=== PATIENT | male | born 1945 | race Two or more races ===

== ENCOUNTER 2018-11-08 11:28 | Inpatient (IN) | payer MEDICARE ==
[~2018-11-08] VITALS: Ht 182.9 cm; Wt 106.6 kg
[2018-11-08 11:56] LABS: BASOPHILS % (AUTO) 0.3 % (0.0-2.0); EOSINOPHILS % (AUTO) 0.7 % (0.0-6.0); HEMATOCRIT 41 % (39-51); HEMOGLOBIN 13.7 g/dL (13.5-17.5); LYMPHOCYTES # (AUTO) 1.2 /CMM (0.8-4.8); LYMPHOCYTES % (AUTO) 12.2 % (20.0-44.0); MEAN CORPUSCULAR HGB CONC 34 g/dl (31.0-36.0); MEAN CORPUSCULAR VOLUME 102 fL (80-96); MONOCYTES # (AUTO) 1.2 /CMM (0.1-1.30); MONOCYTES % (AUTO) 12.1 % (2.0-12.0); NEUTROPHILS # (AUTO) 7.2 /CMM (1.8-8.9); NEUTROPHILS % (AUTO) 74.7 % (43.0-81.0); PLATELET COUNT (AUTO) 144 /CMM (150-450); RED BLOOD CELL COUNT(AUTO) 4.01 MIL/uL (4.5-6.0); WHITE BLOOD COUNT (AUTO) 9.6 K/uL (4.3-11.0)
--- NOTE | 2018-11-08 11:59 | NUR ---
PT REC'D TO ER C/O CONGESTION FOR 3 DAYS NO FEVER IV STARTED 20G RT AC LABS AND UA SENT TO [facility] EVALUATION BY ER PROVIDER.
--- NOTE | 2018-11-08 12:00 | NUR ---
CHEST XRAY DONE
--- NOTE | 2018-11-08 12:03 | NUR ---
PT IS VISITING FROM [facility] STATED HAD BEEN DX WITH CPOD IN MAR 2018 . O2 SATS 92 2L N/C
[2018-11-08] MEDS ORDERED: ASPI-1169 PO (12:06)
[2018-11-08] MEDS ORDERED: ALBU18HF2 IH (12:06)
[2018-11-08] MEDS ORDERED: ATOR40TA PO (12:06)
[2018-11-08] MEDS ORDERED: UMEC1BLS IH (12:06)
[2018-11-08] MEDS ORDERED: CARV25TA PO (12:06)
[2018-11-08] MEDS ORDERED: APIX2.5T PO (12:06)
[2018-11-08 12:08] LABS: CALCIUM, SERUM 8.4 mg/dL (8.5-10.1); CARBON DIOXIDE 30 mmol/L (21-32); CHLORIDE 103 mmol/L (98-107); CREATININE 0.8 mg/dL (0.6-1.3); GLUCOSE 162 mg/dL (74-106); POTASSIUM 4.2 mmol/L (3.5-5.1); SODIUM SERUM 141 mmol/L (136-145); UREA NITROGEN, BLOOD 16 mg/dL (7-18)
[2018-11-08 12:21] LABS: ALANINE AMINOTRANSFERASE 24 U/L (12-78); ALBUMIN 3.6 g/dL (3.4-5.0); ALKALINE PHOSPHATASE 123 U/L (46-116); ASPARTATE AMINOTRANSFERASE 22 U/L (15-37); B-TYPE NATRIURETIC PEPTIDE 1884 PG/ML (0-125); BILIRUBIN,DIRECT 0.4 mg/dL (0.0-0.2); BILIRUBIN,TOTAL 1.3 mg/dL (0.2-1.0); TOTAL PROTEIN, SERUM 7.4 g/dL (6.4-8.2)
--- NOTE | 2018-11-08 12:24 | NUR ---
RT AT BEDSIDE GIVING TX
[2018-11-08] MEDS ORDERED: ALBUTEROL FS 2.5 MG/3 ML VIAL.NEB NEB ONE (12:30)
[2018-11-08] MEDS ORDERED: IPRATROPIUM NEB FS 0.5 MG/2.5 ML AMPUL.NEB NEB ONE (12:30)
[2018-11-08] MEDS ORDERED: ALBUTEROL FS 2.5 MG/3 ML VIAL.NEB ONE (12:33)
[2018-11-08] MEDS ORDERED: IPRATROPIUM NEB FS 0.5 MG/2.5 ML AMPUL.NEB ONE (12:33)
--- NOTE | 2018-11-08 12:56 | NUR ---
PT HAD BREATHING TX SSTILL HAS RALES WHEEZING KYARA PENDING ADMIT
--- NOTE | 2018-11-08 13:19 | NUR ---
CALLED [facility]
--- NOTE | 2018-11-08 13:25 | NUR ---
CALLED NURSING SUP, ASKED FOR TELE BED
[2018-11-08] MEDS ORDERED: FUROSEMIDE 20 MG/2 ML VIAL ONE (13:58)
[2018-11-08] MEDS ORDERED: FUROSEMIDE 20 MG/2 ML VIAL IV ONE (14:00)
[2018-11-08] MEDS ORDERED: CEFTRIAXONE 1GM BAG (ER ONLY) 1 GM/50 ML PIGGYBACK IV ONE (14:00)
[2018-11-08] MEDS ORDERED: methylPREDNISolone SOD SUCC 125 MG/2ML VIAL IV ONE (14:00)
--- NOTE | 2018-11-08 14:01 | NUR ---
room 308-2
--- NOTE | 2018-11-08 14:02 | NUR ---
MEDS GIVEN PER MD ORDER
[2018-11-08] MEDS ORDERED: methylPREDNISolone SOD SUCC 125 MG/2ML VIAL ONE (14:03)
--- NOTE | 2018-11-08 15:05 | NUR ---
RN NOTES RECEIVED REPORT FROM AMAYA.
--- NOTE | 2018-11-08 15:08 | NUR ---
CALLED REPORT TO Leonor on floor pt stable for transfer
--- NOTE | 2018-11-08 15:20 | NUR ---
FINAL OPERATIONS TECHNICIAN ADMITTING NOTES ADMITTED A 73 Y/O MALE TO UNIT VIA GURNEY AT 1520 ACCOMPANIED BY E.R NURSE AND FAMILY. A/O X 4. ABLE TO MAKE NEEDS KNOWN. NO C/O PAIN OR DISCOMFORT AT THIS TIME. PATIENT ORIENTED TO UNIT, ROOM AND STAFF. ON OXYGEN 2LPM VIA NC. V/S TAKEN AND RECORDED. PHYSICAL ASSESSMENT DONE. PHOTOS OF SKIN ISSUES TAKEN AND FILED ON CHART. IV ACCESS ON RIGHT AC #20 CURRENTLY ON SL. PATENT AND INTACT. SAFETY MEASURES IN PLACE, BED IN LOW LOCKED POSITION WITH SIDE RAILS UPX2. CALL LIGHT WITHIN EASY REACH. WILL CONTINUE TO MONITOR.
[2018-11-08 16:01] VITALS: BP 135/67
[2018-11-08] MEDS ORDERED: Z GUARD REMEDY 2 OZ OINT TP PRN (18:30)
[2018-11-08] MEDS ORDERED: ZOLPIDEM TARTRATE 5 MG TABLET PO PRN (18:30)
[2018-11-08] MEDS ORDERED: MAGNESIUM HYDROXIDE 30 ML UDC PO PRN (18:30)
[2018-11-08] MEDS ORDERED: LORAZEPAM INJ 2 MG/ML VIAL IV PRN (18:30)
[2018-11-08] MEDS ORDERED: IPRATROPIUM NEB FS 0.5 MG/2.5 ML AMPUL.NEB NEB PRN (18:30)
[2018-11-08] MEDS ORDERED: MAG HYDROX/AL HYDROX/SIMETH 30 ML UDC PO PRN (18:30)
[2018-11-08] MEDS ORDERED: ACETAMINOPHEN 325 MG TABLET PO PRN (18:30)
[2018-11-08] MEDS ORDERED: ALBUTEROL FS 2.5 MG/3 ML VIAL.NEB NEB PRN (18:30)
[2018-11-08] MEDS ORDERED: HYDROCODONE/APAP 5/325MG 1 EACH TABLET PO PRN (18:30)
[2018-11-08] MEDS ORDERED: ONDANSETRON HCL/PF 4 MG/2 ML VIAL IVP PRN (18:30)
--- NOTE | 2018-11-08 18:53 | NUR ---
LEARNING AND DEVELOPMENT MANAGER CLOSING NOTES PATIENT IN BED RESTING COMFORTABLY IN MODERATE HIGH BACK REST. A/O X4. SON AT BEDSIDE. ON OXYGEN 2LPM VIA NC. NO SOB NOTED. NO C/O PAIN OR ANY DISCOMFORT AT THIS TIME. IV ACCESS ON RAC #20, CURRENTLY ON SL. PATENT AND INTACT. ON TELE MONITORING WITH CURRENT READING OF AFIB WITH HR OF 80'S. NO CARDIAC DISTRESS VOICED AT THIS TIME. SAFETY MEASURES IN PLACE, BED IN LOW LOCKED POSITION WITH SIDE RAILS UP X2. CALL LIGHT WITHIN EASY REACH. WILL ENDORSE TO STRATEGIC INTELLIGENCE OFFICER NURSE FOR SOURAV.
--- NOTE | 2018-11-08 19:30 | NUR ---
RECEIVED PATIENT UP IN BED. AO X 3, ABLE TO MAKE NEEDS KNOWN. NO ACUTE DISTRESS NOTED. DENIES ANY PAIN AT THIS TIME. TELE READING AFIB HR 82. IV SITE PATENT, INTACT; FLUSHED. SAFETY REMINDERS GIVEN. ON LOW BED WITH BILATERAL UPPER SIDE RAILS UP. CALL DOMINGUEZ WITHIN EASY REACH. WILL CONTINUE TO MONITOR. .
[2018-11-08 20:00] VITALS: BP 107/59
[2018-11-08] MEDS: IPRATROPIUM NEB FS 0.5 MG/2.5 ML AMPUL.NEB NEB SCH (20:15)
[2018-11-08] MEDS: ALBUTEROL FS 2.5 MG/3 ML VIAL.NEB NEB SCH (20:15)
--- NOTE | 2018-11-08 23:50 | NUR ---
RELAYED TO DR. LUNA THAT PATIENT'S ELIQUIS, LIPITOR, AND CARVEDILOL WERE CONTINUED IN MED [facility] BUT TO BE STARTED ON 11/09/18. PER PATIENT, HE NEEDS TO TAKE ELIQUIS, LIPITOR, AND CARVEDILOL TONIGHT. DR. LUNA ORDERED X 1 OF ELIQUIS, LIPITOR, AND CARVEDILOL; NOTED AND CARRIED OUT.
[2018-11-09] VITALS: BP 124/67
[2018-11-09] MEDS ORDERED: CARVEDILOL 12.5 MG TABLET PO ONE
[2018-11-09] MEDS ORDERED: APIXABAN 2.5 MG TABLET PO ONE
[2018-11-09] MEDS ORDERED: ATORVASTATIN 40 MG TABLET PO ONE
[2018-11-09] MEDS: IPRATROPIUM NEB FS 0.5 MG/2.5 ML AMPUL.NEB NEB SCH ×4 (02:10→20:09)
[2018-11-09] MEDS: ALBUTEROL FS 2.5 MG/3 ML VIAL.NEB NEB SCH ×4 (02:11→20:09)
[2018-11-09 05:00] VITALS: BP 108/49
[2018-11-09 06:00] VITALS: BP 108/49
--- NOTE | 2018-11-09 06:00 | NUR ---
PATIENT ASLEEP, EASILY AROUSABLE. RESPIRATIONS EVEN. NO SIGNS OF PAIN NOTED. DUE MEDS GIVEN WITH NO ASE NOTED. NEEDS ATTENDED. SAFETY PRECAUTIONS AND COMFORT MEASURES IN PLACE. WILL GIVE REPORT TO DAY SHIFT FOR CONTINUITY OF CARE.
[2018-11-09 06:36] LABS: ALBUMIN 3.1 g/dL (3.4-5.0); BILIRUBIN,TOTAL 0.9 mg/dL (0.2-1.0); CALCIUM, SERUM 7.8 mg/dL (8.5-10.1); POTASSIUM 4.1 mmol/L (3.5-5.1); TOTAL PROTEIN, SERUM 6.5 g/dL (6.4-8.2)
[2018-11-09 06:45] LABS: THYROID STIMULATING HORMONE 0.528 uIU/mL (0.358-3.74)
[2018-11-09 07:08] LABS: BASOPHILS % (AUTO) 0.1 % (0.0-2.0); HEMATOCRIT 39 % (39-51); HEMOGLOBIN 12.7 g/dL (13.5-17.5); LYMPHOCYTES # (AUTO) 0.9 /CMM (0.8-4.8); LYMPHOCYTES % (AUTO) 9.7 % (20.0-44.0); MEAN CORPUSCULAR HGB CONC 33 g/dl (31.0-36.0); MEAN CORPUSCULAR VOLUME 102 fL (80-96); MONOCYTES # (AUTO) 0.5 /CMM (0.1-1.30); MONOCYTES % (AUTO) 5.4 % (2.0-12.0); NEUTROPHILS # (AUTO) 7.6 /CMM (1.8-8.9); NEUTROPHILS % (AUTO) 84.8 % (43.0-81.0); PLATELET COUNT (AUTO) 129 /CMM (150-450); RED BLOOD CELL COUNT(AUTO) 3.78 MIL/uL (4.5-6.0)
--- NOTE | 2018-11-09 07:44 | NUR ---
GAS SYSTEM OPERATOR NOTES PATIENT RECEIVED RESTING INSIDE ROOM. SLEEPING, EASILY AROUSABLE THROUGH VERBAL AND TACTILE STIMULI. NO ACUTE DISTRESS. DENIES ANY PAIN OR DISCOMFORT. NO CHANGES IN LOC NOTED. CONTINUE ON TELEMETRY, SYNOPTIC METEOROLOGIST IN PLACE, SR 72. SAFETY PRECAUTIONS IN PLACE. WILL CONTINUE TO MONITOR. BED LOCKED AND IN LOW POSITION. BILATERAL UPPER SIDE RAILS UP AND LOCKED. CALL LIGHT WITHIN EASY REACH
[2018-11-09 08:00] VITALS: BP 115/60
[2018-11-09] MEDS: APIXABAN 2.5 MG TABLET PO SCH ×2 (08:58→17:51)
[2018-11-09] MEDS: THIAMINE HCL 100 MG TABLET PO SCH (08:59)
[2018-11-09] MEDS: FLUTICASONE/VILANTEROL 1 EACH BLST.W.DEV IH SCH (08:59)
[2018-11-09] MEDS: FOLIC ACID 1 MG TABLET PO SCH (08:59)
[2018-11-09] MEDS: CARVEDILOL 12.5 MG TABLET PO SCH ×2 (08:59→17:50)
[2018-11-09] MEDS: ASPIRIN 81 MG TAB.CHEW PO SCH (08:59)
[2018-11-09] MEDS: methylPREDNISolone SOD SUCC 125 MG/2ML VIAL IV SCH ×3 (09:00→17:50)
[2018-11-09 09:23] LABS: ABG BASE EXCESS -0.3 mmol/L; ABG OXYGEN SATURATION 97.1 % (92.0-98.5); ABG PCO2 45.5 mmHg (35.0-45.0); ABG PH 7.365 (7.350-7.450); ABG PO2 97.8 mmHg (75.0-100.0); AaDO2 33.7 mmHg; COHb 1.3 % (0.5-1.5); MetHb 0.3 % (0.0-1.5); O2Hb 95.5 % (94.0-97.0); VENT MODE, BG NC 2L
[2018-11-09] MEDS: CEFTRIAXONE 1 G in IV D5W 50 ML IV SCH (13:23)
[2018-11-09 16:00] VITALS: BP 134/73
[2018-11-09] MEDS: ATORVASTATIN 40 MG TABLET PO SCH (17:50)
--- NOTE | 2018-11-09 19:02 | NUR ---
MS RN NOTES PATIENT RESTING INSIDE ROOM. AWAKE, ALERT AND ORIENTED X 4, VERBALLY RESPONSIOVE AND RESPONDS TO VERBAL AND TACTILE STIMULI. BREATHING EVEN AND UNLABORED. NO ACUTE DISTRESS. DENIES ANY PAIN OR DISCOMFORT AT THIS TIME. NO CHANGES IN LOC NOTED AT THIS TIME. WILL ENDORSE TO INCOMING SHIFT FOR SOURAV. PATIENT KEPT CLEAN, DRY AND COMFORTABLE. PROVIDED WITH CALM, SAFE, HAZARD-FREE ENVIRONMENT. CALL LIGHT WITHIN EASY REACH
--- NOTE | 2018-11-09 20:03 | NUR ---
MS RN NOTES RECEIVED PATIENT AWAKE IN BED WITH NO DISTRESS NOTED. CALL LIGHT WITHIN REACH. NO C/O PAIN OR DISCOMFORT. PERIPHERAL LINE INTACT AND PATENT. ENCOURAGED USE OF CALL LIGHT FOR ASSISTANCE AND VERBALIZED GOOD UNDERSTANDING. BED IN LOW LOCK SETTING. ROOM FREE OF CLUTTER AND BELONGINGS KEPT NEAR BEDSIDE. BED ALARM ON AND FUNCTIONING PROPERLY. WILL CONTINUE TO MONITOR.
[2018-11-09 20:24] VITALS: BP 133/79
[2018-11-10] MEDS: IPRATROPIUM NEB FS 0.5 MG/2.5 ML AMPUL.NEB NEB SCH ×4 (01:28→19:41)
[2018-11-10] MEDS: ALBUTEROL FS 2.5 MG/3 ML VIAL.NEB NEB SCH ×4 (01:28→19:41)
--- NOTE | 2018-11-10 06:25 | NUR ---
MS RN NOTES PATIENT ASLEEP IN BED WITH NO DISTRESS NOTED. CALL LIGHT WITHIN REACH. ALL DUE MEDS GIVEN ORDERED WITH NO ASE. NO C/O PAIN OR DISCOMFORT. PERIPHERAL LINE INTACT AND PATENT. BED IN LOW LOCK SETTING. BED ALARM ON AND FUNCTIONING PROPERLY. ROOM FREE OF CLUTTER AND BELONGINGS KEPT NEAR BEDSIDE. WILL ENDORSE TO ONCOMING SHIFT.
[2018-11-10 06:32] LABS: HEMATOCRIT 40 % (39-51); HEMOGLOBIN 13.2 g/dL (13.5-17.5); LYMPHOCYTES # (AUTO) 0.9 /CMM (0.8-4.8); LYMPHOCYTES % (AUTO) 7.2 % (20.0-44.0); MEAN CORPUSCULAR HGB CONC 33 g/dl (31.0-36.0); MEAN CORPUSCULAR VOLUME 101 fL (80-96); MONOCYTES # (AUTO) 0.7 /CMM (0.1-1.30); MONOCYTES % (AUTO) 5.7 % (2.0-12.0); NEUTROPHILS # (AUTO) 10.6 /CMM (1.8-8.9); NEUTROPHILS % (AUTO) 87.1 % (43.0-81.0); PLATELET COUNT (AUTO) 133 /CMM (150-450); RED BLOOD CELL COUNT(AUTO) 3.95 MIL/uL (4.5-6.0); WHITE BLOOD COUNT (AUTO) 12.2 K/uL (4.3-11.0)
[2018-11-10 06:37] LABS: CALCIUM, SERUM 8.3 mg/dL (8.5-10.1); POTASSIUM 4.1 mmol/L (3.5-5.1)
[2018-11-10 08:00] VITALS: BP 121/71
--- NOTE | 2018-11-10 08:00 | NUR ---
m/s bread and pastry baker: initial assessment received pt in bed awake, a/ox4. pt still wheezing to keri lobes upon auscultation. no c/o sob or any discomfort. instructed to call for assistance. will continue to monitor.
[2018-11-10 09:06] VITALS: BP 121/91
[2018-11-10] MEDS: FOLIC ACID 1 MG TABLET PO SCH (09:10)
[2018-11-10] MEDS: FLUTICASONE/VILANTEROL 1 EACH BLST.W.DEV IH SCH (09:11)
[2018-11-10] MEDS: ASPIRIN 81 MG TAB.CHEW PO SCH (09:11)
[2018-11-10] MEDS: CARVEDILOL 12.5 MG TABLET PO SCH ×2 (09:11→17:52)
[2018-11-10] MEDS: THIAMINE HCL 100 MG TABLET PO SCH (09:11)
[2018-11-10] MEDS: APIXABAN 2.5 MG TABLET PO SCH (09:15)
[2018-11-10] MEDS: methylPREDNISolone SOD SUCC 125 MG/2ML VIAL IV SCH ×3 (09:19→18:58)
--- NOTE | 2018-11-10 09:30 | NUR ---
m/s promotional representative: pulmo consult seen and examined by dr. saldivar at this time.
--- NOTE | 2018-11-10 11:20 | NUR ---
m/s plastics heat welder: cardio consult seen and examined dr. youssef at this time. son at bedside. will continue to monitor.
--- NOTE | 2018-11-10 12:30 | NUR ---
m/s foundry manager: notes up and about in unit with son near by. will continue to monitor.
--- NOTE | 2018-11-10 12:40 | NUR ---
m/s knot tier: notes ekg resulted and hand result to dr. larios (crm marketing analyst) with no new order.
[2018-11-10] MEDS: CEFTRIAXONE 1 G in IV D5W 50 ML IV SCH (13:33)
--- NOTE | 2018-11-10 14:00 | NUR ---
m/s lead welder: notes resting comfortable in bed. no distress noted.
[2018-11-10 16:00] VITALS: BP 131/68
--- NOTE | 2018-11-10 16:00 | NUR ---
m/s bartender server: notes resting comfortable in his room. no distress noted. instructed to call for assistance. will monitor.
[2018-11-10] MEDS ORDERED: APIXABAN 2.5 MG TABLET PO SCH (17:00)
[2018-11-10] MEDS: ATORVASTATIN 40 MG TABLET PO SCH (17:52)
[2018-11-10] MEDS: APIXABAN 5 MG TABLET PO SCH (17:55)
--- NOTE | 2018-11-10 19:00 | NUR ---
RN medsurg notes Received Pt from morning nurse. Pt is alert and oriented x4. Pt is resting in bed comfortably. Respiration is normal in 2 L NC. No SOB. No nausea or vomiting. Pt denies any pain or discomfort at this time. IV sites at RAC # 20 is clean, intact, patent and SL. Safety precautions is maintained. Bed at low position, brakes locked, side rails X2 and call light is within reach. Will continue to monitor.
--- NOTE | 2018-11-10 19:00 | NUR ---
m/s service unit operator: notes bedside report given to davin (rn) for continuity of care.
[2018-11-10] MEDS ORDERED: FEE PK DOSING 1 MIN EA MC ONE (19:33)
[2018-11-10 20:00] VITALS: BP 127/73
[2018-11-10] MEDS: VANCOMYCIN 1.5 GM in IV D5W 500 ML IV SCH (20:38)
[2018-11-10 20:41] VITALS: BP 127/73
--- NOTE | 2018-11-11 | NUR ---
RN medsurg notes Pt is sleeping in bed comfortably. Awaken easily. Respiration is normal in 2 L NC. No SOB. No S/S of distress noted.
[2018-11-11] MEDS: ALBUTEROL FS 2.5 MG/3 ML VIAL.NEB NEB SCH ×4 (00:58→20:20)
[2018-11-11] MEDS: IPRATROPIUM NEB FS 0.5 MG/2.5 ML AMPUL.NEB NEB SCH ×4 (00:58→20:20)
--- NOTE | 2018-11-11 06:30 | NUR ---
RN medsurg closing notes Pt is alert and oriented X4. Pt is sitting in bed comfortably. Respiration is normal in 2 L NC. No SOB. Pt denies any pain or discomfort at this time. IV sites RAC is clean, intact, patent and SL. Routine meds were given as ordered. All needs met and attended. Kept Pt warm, dry and comfortable. Safety precautions is maintained. Bed at low position, brakes locked, side rails upX2 and call light is within reach. Will endorse to morning nurse for SOURAV.
--- NOTE | 2018-11-11 07:20 | NUR ---
MS RN OPENING NOTES RECEIVED PATIENT AWAKE IN BED WITH NO DISTRESS NOTED. A/O X 4. ON OXYGEN 2LPM VIA NC. NO SOB OR ANY DISCOMFORT NOTED AT THIS TIME. IV ACCESS ON RAC #20, SL. PATENT AND INTACT. SAFETY MEASURES IN PLACE, BED IN LOW LOCKED POSITION WITH SIDE RAILS UP X 2. CALL LIGHT WITHIN REACH. WILL CONTINUE TO MONITOR.
[2018-11-11 07:30] VITALS: BP_SYST 136; BP_SYST 157; BP_DIAS 82; BP_DIAS 98
[2018-11-11 07:31] LABS: CALCIUM, SERUM 8.1 mg/dL (8.5-10.1); CREATININE 0.9 mg/dL (0.6-1.3); POTASSIUM 4.1 mmol/L (3.5-5.1)
[2018-11-11] MEDS: methylPREDNISolone SOD SUCC 125 MG/2ML VIAL IV SCH (08:58)
[2018-11-11] MEDS: CARVEDILOL 12.5 MG TABLET PO SCH ×2 (09:00→17:29)
[2018-11-11] MEDS: ASPIRIN 81 MG TAB.CHEW PO SCH (09:00)
[2018-11-11] MEDS: FOLIC ACID 1 MG TABLET PO SCH (09:00)
[2018-11-11] MEDS: THIAMINE HCL 100 MG TABLET PO SCH (09:00)
[2018-11-11] MEDS: VANCOMYCIN 1.5 GM in IV D5W 500 ML IV SCH ×2 (09:01→21:14)
[2018-11-11] MEDS: APIXABAN 5 MG TABLET PO SCH ×2 (09:05→17:28)
--- NOTE | 2018-11-11 10:21 | NUR ---
MS RN NOTE RECEIVED REPORT FROM EDE DENG. PATIENT IN BED RESTING COMFORTABLY. PATIENT IN NO ACUTE DISTRESS. NO SOB NOTED. PATIENT BREATHING IS EVEN AND UNLABORED. PATIENT BREATHING ON OXYGEN NC AT 2L. PATIENT VERBALIZES NEEDS, NEEDS AND CONCERNS ADDRESSED. PATIENT BED IS LOCKED AND IN LOWEST POSITION. CALL LIGHT WITHIN REACH. WILL CONTINUE TO MONITOR.
[2018-11-11 10:57] LABS: ABG BASE EXCESS -0.8 mmol/L; ABG OXYGEN SATURATION 88.4 % (92.0-98.5); ABG PCO2 41.1 mmHg (35.0-45.0); ABG PH 7.387 (7.350-7.450); ABG PO2 54.1 mmHg (75.0-100.0); AaDO2 46.4 mmHg; COHb 0.9 % (0.5-1.5); MetHb 0.3 % (0.0-1.5); O2Hb 87.3 % (94.0-97.0); SITE, ABG Right Radial; VENT MODE, BG ROOM AIR
--- NOTE | 2018-11-11 11:24 | NUR ---
MS RN NOTE PATIENT CRITICAL LAB VALUE PO2 54.1 ON ROOM AIR. REPORTED TO DR. GARY STRONG. PATIENT SEEN AND EVALUATED BY MD. ORDERS TO MAINTAIN PATIENT ON OXYGEN NC 2L AND TITRATE OXYGEN TO SPO2 LEVELS BETWEEN 89-93% PER DR. STRONG. WILL CONTINUE TO MONITOR.
[2018-11-11] MEDS: CEFTRIAXONE 1 G in IV D5W 50 ML IV SCH (13:07)
[2018-11-11 16:00] VITALS: BP 127/72
[2018-11-11] MEDS: ATORVASTATIN 40 MG TABLET PO SCH (17:28)
--- NOTE | 2018-11-11 18:43 | NUR ---
MS RN NOTE PATIENT SITTING IN BED RESTING COMFORTABLY, TALKING TO FAMILY. PATIENT IN NO ACUTE DISTRESS. NO SOB NOTED. PATIENT BREATHING IS EVEN AND UNLABORED. PATIENT BREATHING ON OXYGEN NC AT 2L, SATURATING 93% SPO2. PATIENT KEPT CLEAN, DRY, AND COMFORTABLE. ALL NURSING NEEDS MET. PATIENT VERBALIZES NEEDS AND CONCERNS. NEEDS AND CONCERNS WERE ADDRESSED. PATIENT BED IS LOCKED AND IN LOWEST POSITION. CALL LIGHT WITHIN REACH. WILL ENDORSE CARE TO PM SHIFT FOR SOURAV. Addendum: 11/11/18 at 1846 by FIONA BANUELOS RN MR RN CLOSING NOTE PATIENT SITTING IN BED RESTING COMFORTABLY, TALKING TO FAMILY. PATIENT IN NO ACUTE DISTRESS. NO SOB NOTED. PATIENT BREATHING IS EVEN AND UNLABORED. PATIENT BREATHING ON OXYGEN NC AT 2L, SATURATING 93% SPO2. PATIENT KEPT CLEAN, DRY, AND COMFORTABLE. ALL NURSING NEEDS MET. PATIENT VERBALIZES NEEDS AND CONCERNS. NEEDS AND CONCERNS WERE ADDRESSED. PATIENT BED IS LOCKED AND IN LOWEST POSITION. CALL LIGHT WITHIN REACH. WILL ENDORSE CARE TO PM SHIFT FOR SOURAV. Addendum: 11/11/18 at 1846 by FIONA BANUELOS RN MS RN CLOSING NOTE
--- NOTE | 2018-11-11 19:10 | NUR ---
CHANGE OF SHIFT REPORT Patient in bed, awake. On oxygen at 2L via NC, denies shortness of breath at rest and with exertion. Instruction to use call light for assistance, verbalized understanding.
[2018-11-11 20:00] VITALS: BP 117/66
[2018-11-12] MEDS: ALBUTEROL FS 2.5 MG/3 ML VIAL.NEB NEB SCH ×3 (02:25→14:00)
[2018-11-12] MEDS: IPRATROPIUM NEB FS 0.5 MG/2.5 ML AMPUL.NEB NEB SCH ×3 (02:25→14:00)
--- NOTE | 2018-11-12 06:36 | NUR ---
END OF SHIFT REPORT Patient in bed, stable oxygen saturation on 2L via NC denies shortness of breath at rest and with exertion. Neb. ATC. IV abx as scheduled, Steroids PO daily, denies chest pain. Afebrile, hourly rounds. Fall precaution maintained.
--- NOTE | 2018-11-12 07:35 | NUR ---
MS RN OPENING NOTES RECEIVED PT AWAKE, SITTING AT THE EDGE OF THE BED, A/O X4. PT ON SUPPLEMENTARY OXYGEN AT 2L VIA NC, WITH NO ACUTE RESPIRATORY DISTRESS NOTED. PT DENIES ANY PAIN OR DISCOMFORT AT THIS TIME. PT ALSO DENIES CONCERNS AND QUESTIONS AT THIS MOMENT. PIV TO RAC G20, FLUSHED WITH NS, INACT AND OPERATIONAL. PT KEPT COMFORTABLE AT THIS TIME. CALL LIGHT KEPT WITHIN REACH. PT'S BED IN LOWEST, LOCKED POSITION WITH SR X2. WILL CONTINUE PLAN OF CARE.
[2018-11-12 08:00] VITALS: BP 123/80
[2018-11-12 08:18] LABS: BASOPHILS % (AUTO) 0.2 % (0.0-2.0); HEMATOCRIT 40 % (39-51); HEMOGLOBIN 13.3 g/dL (13.5-17.5); LYMPHOCYTES # (AUTO) 1.1 /CMM (0.8-4.8); LYMPHOCYTES % (AUTO) 9.6 % (20.0-44.0); MEAN CORPUSCULAR HGB CONC 33 g/dl (31.0-36.0); MEAN CORPUSCULAR VOLUME 101 fL (80-96); MONOCYTES # (AUTO) 1.6 /CMM (0.1-1.30); MONOCYTES % (AUTO) 13.2 % (2.0-12.0); NEUTROPHILS # (AUTO) 9.1 /CMM (1.8-8.9); PLATELET COUNT (AUTO) 164 /CMM (150-450); RED BLOOD CELL COUNT(AUTO) 3.98 MIL/uL (4.5-6.0); WHITE BLOOD COUNT (AUTO) 11.8 K/uL (4.3-11.0)
[2018-11-12] MEDS: APIXABAN 5 MG TABLET PO SCH (08:19)
[2018-11-12] MEDS: FOLIC ACID 1 MG TABLET PO SCH (08:20)
[2018-11-12] MEDS: THIAMINE HCL 100 MG TABLET PO SCH (08:20)
[2018-11-12 08:21] VITALS: BP 123/80
[2018-11-12] MEDS: CARVEDILOL 12.5 MG TABLET PO SCH (08:21)
[2018-11-12] MEDS: ASPIRIN 81 MG TAB.CHEW PO SCH (08:21)
[2018-11-12 08:33] LABS: CALCIUM, SERUM 7.9 mg/dL (8.5-10.1); CREATININE 0.8 mg/dL (0.6-1.3); MAGNESIUM 2.5 mg/dL (1.8-2.4); PHOSPHORUS 3.3 mg/dL (2.5-4.9); POTASSIUM 4.3 mmol/L (3.5-5.1)
[2018-11-12] MEDS: VANCOMYCIN 1.5 GM in IV D5W 500 ML IV SCH (08:45)
[2018-11-12] MEDS ORDERED: predniSONE 20 MG TABLET PO SCH (09:00)
[2018-11-12] MEDS ORDERED: ALBU18HF2 INH (09:59)
[2018-11-12] MEDS ORDERED: UMEC1BLS IH (09:59)
[2018-11-12] MEDS ORDERED: APIX5TAB PO (09:59)
[2018-11-12] MEDS ORDERED: PRED20TA PO (09:59)
[2018-11-12] MEDS ORDERED: Thiamine HCL PO (09:59)
[2018-11-12] MEDS ORDERED: FOLI1TAB16 PO (09:59)
[2018-11-12] MEDS ORDERED: LEVO500T75 PO (09:59)
[2018-11-12] MEDS: CEFTRIAXONE 1 G in IV D5W 50 ML IV SCH (14:02)
--- NOTE | 2018-11-12 16:58 | NUR ---
MS FUR POLISHER NOTES PT TO DISCHARGE HOME, ACCOMPANIED BY SON. PT A/O X4. AMBULATORY; PT HAS OWN WHEELCHAIR. PT TOLERATING RA, WITH NO ACUTE RESPIRATORY DISTRESS NOTED. OXYGEN WAS ORDERED NEEDED AT HOME, PER CM/DIAN IT WILL BE DELIVERED TODAY. PT DENIES ANY PAIN OR ANY DISCOMFORT AT THIS MOMENT. PIV TO RAC REMOVED, APPLIED DRY DRESSING. SKIN INTACT WITH MULTIPLE BRUISE. PT REFUSED FOR IT TO BE TAKEN AND STATED "NO NEED IT IS NOT OPEN ANYWAY, ITS BEEN THERE"" Addendum: 11/12/18 at 1701 by ARMAAN ACEVEDO RN INCOMPLETE DOCUMENTATION
--- NOTE | 2018-11-12 17:01 | NUR ---
MS HADOOP INFRASTRUCTURE ARCHITECT NOTES PT TO DISCHARGE HOME, ACCOMPANIED BY SON. PT A/O X4. AMBULATORY; PT HAS OWN WHEELCHAIR. PT TOLERATING RA, WITH NO ACUTE RESPIRATORY DISTRESS NOTED. OXYGEN WAS ORDERED NEEDED AT HOME, PER CM/DIAN IT WILL BE DELIVERED TODAY. PT DENIES ANY PAIN OR ANY DISCOMFORT AT THIS MOMENT. PIV TO RAC REMOVED, APPLIED DRY DRESSING. SKIN INTACT WITH MULTIPLE BRUISE. PT REFUSED FOR IT TO BE TAKEN AND STATED "NO NEED IT IS NOT OPEN ANYWAY, ITS BEEN THERE." RN EXPLAINED RISK AND PROTOCOL, INSIST TO REFUSE. PT REVIEWED AND SIGNED DISCHARGE INSTRUCTIONS AND INVENTORY LIST. ALL NEEDS AND CARE ATTENDED. PT HAPPY WITH THE CARE PROVIDED. PT ESCORTED BY LEATHER REPAIRER TO THE LOBBY VIA WHEELCHAIR AT 1655, ACCOMPANIED BY SON AND TWO DAUGHTERS. DIESEL RETROFIT INSTALLER/LW AND WEN/OTILIA AWARE OF DISCHARGE.
== END 2018-11-12 17:25 | disposition home or self-care (01) | DRG 190 ==
LOC: ER 11:28 → TELE 13:49 → MED 11-09 09:25
PROVIDERS: ADMIT Hospitalist; ATTEND Registered Nurse
DX: J44.1 Chronic obstructive pulmonary disease with (acute) exacerbation (principal); J96.01 Acute respiratory failure with hypoxia; E78.5 Hyperlipidemia, unspecified; I10 Essential (primary) hypertension; I25.10 Atherosclerotic heart disease of native coronary artery without angina pectoris; I27.20 Pulmonary hypertension, unspecified; Z79.51 Long term (current) use of inhaled steroids; Z79.82 Long term (current) use of aspirin; Z79.899 Other long term (current) drug therapy; I25.2 Old myocardial infarction; G47.33 Obstructive sleep apnea (adult) (pediatric); F17.200 Nicotine dependence, unspecified, uncomplicated; F10.10 Alcohol abuse, uncomplicated; Y90.9 Presence of alcohol in blood, level not specified; M16.12 Unilateral primary osteoarthritis, left hip; Z95.5 Presence of coronary angioplasty implant and graft; Z98.1 Arthrodesis status; D72.829 Elevated white blood cell count, unspecified; J06.9 Acute upper respiratory infection, unspecified; T38.0X5A Adverse effect of glucocorticoids and synthetic analogues, initial encounter; Y92.9 Unspecified place or not applicable; Z79.01 Long term (current) use of anticoagulants; Z87.01 Personal history of pneumonia (recurrent); I48.91 Unspecified atrial fibrillation
CPT/HCPCS: 36415; 36600; 71045-TC; 80048-TC; 80053-TC; 80061-TC; 80076-TC; 80202-TC; 82803-TC; 83735-TC; 83880; 84100-TC; 84443-TC; 84484-TC; 85025-TC; 86403-TC; 87040-TC; 87070-TC; 87081-TC; 87186-TC; 93307-TC; 94799-TC; G0378; J0696; J1940; J2930; J3370; J7050; J7060

== ENCOUNTER 2021-12-03 13:00 | Outpatient (CLI) | payer MEDICARE ==
[~2021-12-03 13:00] MED LIST: ALBU18HF2 IH; ALBU18HF2 INH; APIX5TAB PO; ASPI-1169 PO; ATOR40TA PO; CARV25TA PO; FOLI1TAB16 PO; LEVO500T23 PO; PRED20TA PO; Thiamine HCL PO; UMEC1BLS IH
[2021-12-03] MEDS ORDERED: SILVER NITRATE APPLICATOR 1 EA BOX ONE (13:39)
== END 2021-12-03 23:59 | disposition home or self-care (01) ==
LOC: WOU 13:00
PROVIDERS: ATTEND Surgery
DX: S61.412A Laceration without foreign body of left hand, initial encounter (principal); W08.XXXA Fall from other furniture, initial encounter; Y93.89 Activity, other specified; Y92.003 Bedroom of unspecified non-institutional (private) residence as the place of occurrence of the external cause; S01.01XD Laceration without foreign body of scalp, subsequent encounter; W08.XXXD Fall from other furniture, subsequent encounter; I10 Essential (primary) hypertension; E78.5 Hyperlipidemia, unspecified; J44.9 Chronic obstructive pulmonary disease, unspecified; R73.03 Prediabetes; Z79.84 Long term (current) use of oral hypoglycemic drugs; Z87.891 Personal history of nicotine dependence; Z79.01 Long term (current) use of anticoagulants
CPT/HCPCS: 11042; G0463

== ENCOUNTER 2021-12-06 13:25 | Outpatient (CLI) | payer MEDICARE | END 2021-12-06 23:59 | disposition home or self-care (01) | LOC: WOU 13:25 | PROVIDERS: ATTEND Surgery | DX: S61.412A Laceration without foreign body of left hand, initial encounter (principal); W08.XXXA Fall from other furniture, initial encounter; Y93.89 Activity, other specified; Y92.003 Bedroom of unspecified non-institutional (private) residence as the place of occurrence of the external cause; E78.5 Hyperlipidemia, unspecified; I25.10 Atherosclerotic heart disease of native coronary artery without angina pectoris; I10 Essential (primary) hypertension; Z87.891 Personal history of nicotine dependence; Z95.5 Presence of coronary angioplasty implant and graft; Z79.01 Long term (current) use of anticoagulants; R73.03 Prediabetes; Z79.84 Long term (current) use of oral hypoglycemic drugs | CPT/HCPCS: 11042; 11043 ==

== ENCOUNTER 2021-12-10 13:01 | Outpatient (CLI) | payer MEDICARE ==
[2021-12-10] MEDS ORDERED: LIDOCAINE SOLN 4% 50 ML BOTTLE ONE (13:11)
[2021-12-10] MEDS ORDERED: CADEXOMER IODINE UD 5 GM TUBE ONE (13:43)
== END 2021-12-10 23:59 | disposition home health service (06) ==
LOC: WOU 13:01
PROVIDERS: ATTEND Surgery
DX: S61.412A Laceration without foreign body of left hand, initial encounter (principal); W08.XXXA Fall from other furniture, initial encounter; Y93.89 Activity, other specified; Y92.003 Bedroom of unspecified non-institutional (private) residence as the place of occurrence of the external cause; E78.5 Hyperlipidemia, unspecified; I25.10 Atherosclerotic heart disease of native coronary artery without angina pectoris; I10 Essential (primary) hypertension; Z87.891 Personal history of nicotine dependence; Z95.5 Presence of coronary angioplasty implant and graft; Z79.01 Long term (current) use of anticoagulants; R73.03 Prediabetes; Z79.84 Long term (current) use of oral hypoglycemic drugs; J44.9 Chronic obstructive pulmonary disease, unspecified
CPT/HCPCS: 11042

== ENCOUNTER 2021-12-13 11:45 | Outpatient (CLI) | payer MEDICARE ==
[2021-12-13] MEDS ORDERED: LIDOCAINE SOLN 4% 50 ML BOTTLE ONE (12:05)
== END 2021-12-13 23:59 | disposition home health service (06) ==
LOC: WOU 11:45
PROVIDERS: ATTEND Surgery
DX: S61.412A Laceration without foreign body of left hand, initial encounter (principal); W08.XXXA Fall from other furniture, initial encounter; Y93.89 Activity, other specified; Y92.003 Bedroom of unspecified non-institutional (private) residence as the place of occurrence of the external cause; I25.10 Atherosclerotic heart disease of native coronary artery without angina pectoris; I10 Essential (primary) hypertension; Z95.5 Presence of coronary angioplasty implant and graft; E78.5 Hyperlipidemia, unspecified; R73.03 Prediabetes; Z79.84 Long term (current) use of oral hypoglycemic drugs; J44.9 Chronic obstructive pulmonary disease, unspecified; Z87.891 Personal history of nicotine dependence; Z79.01 Long term (current) use of anticoagulants
CPT/HCPCS: 11042

== ENCOUNTER 2021-12-17 13:05 | Outpatient (CLI) | payer MEDICARE | END 2021-12-17 23:59 | disposition home health service (06) | LOC: WOU 13:05 | PROVIDERS: ATTEND Surgery | DX: S61.412A Laceration without foreign body of left hand, initial encounter (principal); W08.XXXA Fall from other furniture, initial encounter; Y92.003 Bedroom of unspecified non-institutional (private) residence as the place of occurrence of the external cause; Y93.89 Activity, other specified; E78.5 Hyperlipidemia, unspecified; J44.9 Chronic obstructive pulmonary disease, unspecified; I25.10 Atherosclerotic heart disease of native coronary artery without angina pectoris; I10 Essential (primary) hypertension; Z95.5 Presence of coronary angioplasty implant and graft; Z79.01 Long term (current) use of anticoagulants; R73.03 Prediabetes; Z79.84 Long term (current) use of oral hypoglycemic drugs | CPT/HCPCS: 11042 ==

== ENCOUNTER → 2021-12-20 | Outpatient (CLI) | payer MEDICARE ==
[~2021-12-20] MED LIST changes: +BACI/NEOM/POLY B OINT PKT 1 UDPKT PACKET ONE
== END | disposition home health service (06) ==
LOC: WOU 13:10
PROVIDERS: ATTEND Surgery
DX: S61.412D Laceration without foreign body of left hand, subsequent encounter (principal); X58.XXXD Exposure to other specified factors, subsequent encounter; E78.5 Hyperlipidemia, unspecified; I10 Essential (primary) hypertension; J44.9 Chronic obstructive pulmonary disease, unspecified; I48.91 Unspecified atrial fibrillation; Z79.01 Long term (current) use of anticoagulants; R73.03 Prediabetes; Z79.84 Long term (current) use of oral hypoglycemic drugs; Z79.82 Long term (current) use of aspirin
CPT/HCPCS: G0463